=== PATIENT | female | born 1980 | race Caucasian/White ===

== ENCOUNTER 2018-10-30 11:57 | Day surgery (SDC) | payer OTHER ==
[2018-10-30] MEDS ORDERED: CEFAZOLIN 1 GM/50 ML (PMX) 50 ML IVPB (12:19)
[2018-10-30] MEDS ORDERED: ONDANSETRON 4 MG INJ IV (12:30)
[2018-10-30] MEDS ORDERED: ALBUTEROL 0.083% (NEB) 2.5 MG/3 ML AMP HHN (12:30)
[2018-10-30] MEDS ORDERED: hydrALAzine 20 MG INJ IV (12:30)
[2018-10-30] MEDS ORDERED: HYDROmorphONE 1 MG/5 ML IV SYRINGE IV ×2 (12:30)
[2018-10-30] MEDS ORDERED: FENTAnyl 50 MCG/ML VIAL IV ×2 (12:30)
[2018-10-30] MEDS ORDERED: LABETALOL HCL 20MG INJ IV (12:30)
[2018-10-30] MEDS ORDERED: EPHEDrine 25 MG/5 ML SYG IV (12:30)
[2018-10-30] MEDS ORDERED: METOCLOPRAMIDE 10 MG INJ IV (12:30)
[2018-10-30] MEDS ORDERED: PROPOFOL 20 ML (13:27)
== END 2018-10-30 13:52 | disposition other institution (70) ==
LOC: GIL 11:57
DX: R13.14 Dysphagia, pharyngoesophageal phase (principal); Z93.0 Tracheostomy status; G82.50 Quadriplegia, unspecified
CPT/HCPCS: 43246